=== PATIENT | female | born 1965 | race Caucasian/White ===

== ENCOUNTER → 2024-05-15 13:45 | Outpatient (REF) | payer BC, SELFPAY | LOC: CLAB 13:45 | PROVIDERS: ATTENDING PHYSICIAN Dentist Oral and Maxillofacial Surgery | DX: K13.79 Other lesions of oral mucosa (principal) | CPT/HCPCS: 88305; 88341; 88342 ==

== ENCOUNTER → 2024-07-07 18:03 | Outpatient (REF) | payer BC, SELFPAY | LOC: MRI 18:03 | PROVIDERS: ATTENDING PHYSICIAN Physician Assistant Surgical | DX: M54.2 Cervicalgia (principal); M54.6 Pain in thoracic spine | CPT/HCPCS: 72141 ==

== ENCOUNTER → 2024-11-17 13:26 | Outpatient (REF) | payer BC, SELFPAY | LOC: CPAP 13:26 | PROVIDERS: ATTENDING PHYSICIAN Obstetrics & Gynecology | DX: Z01.411 Encounter for gynecological examination (general) (routine) with abnormal findings (principal); Z11.51 Encounter for screening for human papillomavirus (HPV) | CPT/HCPCS: 87624 ==

== ENCOUNTER 2024-12-11 06:35 | Outpatient (RCR) | payer BC, SELFPAY | END 2024-12-11 23:59 | disposition home or self-care (01) | LOC: RPT 06:35 | PROVIDERS: ATTENDING PHYSICIAN Physician Assistant Surgical; FAMILY PHYSICIAN Physician Assistant Medical | DX: M47.812 Spondylosis without myelopathy or radiculopathy, cervical region (principal); Z73.6 Limitation of activities due to disability | CPT/HCPCS: 97110; 97112; 97140; 97162 ==

== ENCOUNTER 2025-01-08 07:26 | Outpatient (RCR) | payer BC, SELFPAY | END 2025-01-08 23:59 | disposition home or self-care (01) | LOC: RPT 07:26 | PROVIDERS: ATTENDING PHYSICIAN Physician Assistant Surgical; FAMILY PHYSICIAN Physician Assistant Medical | DX: M47.812 Spondylosis without myelopathy or radiculopathy, cervical region (principal); Z73.6 Limitation of activities due to disability | CPT/HCPCS: 97110; 97112; 97140 ==

== ENCOUNTER 2025-01-15 07:08 | Outpatient (RCR) | payer BC, SELFPAY | END 2025-01-15 09:36 | disposition home or self-care (01) | LOC: RPT 07:08 | PROVIDERS: ATTENDING PHYSICIAN Physician Assistant Surgical; FAMILY PHYSICIAN Physician Assistant Medical | DX: M47.812 Spondylosis without myelopathy or radiculopathy, cervical region (principal); Z73.6 Limitation of activities due to disability | CPT/HCPCS: 97110; 97112; 97140 ==